=== PATIENT | female | born 1960 | race Caucasian/White ===

== ENCOUNTER 2018-04-12 10:30 | Inpatient (IN) ==
--- NOTE | 2018-04-12 11:14 | ED ---
HPI General Chief complaint: Vaginal Bleeding Stated complaint: Bleeding Time Seen by Provider: 04/12/18 11:13 Source: patient Mode of arrival: EMS Limitations: no limitations History of Present Illness HPI narrative: 57-year-old female with no significant medical history presents emergency department for evaluation of heavy vaginal bleeding for the last 8 days, weakness, lightheadedness, and frequent falls. Patient states she stands up in the room began to spin and she falls. She did strike her head 2 times in the last 8 days. She is so weak she has been unable to get herself off the ground and her male partner has had to lift her up. She reports no pain. She states she is leaking through every pad and tampon she puts in within an hour. 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 She states up until about 6 months ago her menstrual cycle was regular. She began having more irregular cycles with heavy bleeding since then. She has no other symptoms to report at this time. Related Data Home Medications Medication Instructions Recorded Confirmed No Known Home Medications 04/12/18 04/12/18 Allergies Allergy/AdvReac Type Severity Reaction Status Date / Time Penicillins Allergy Anaphylaxis Verified 04/12/18 11:15 Review of Systems Except as stated in HPI: all other systems reviewed are negative [facility] Medical History Medical History Medical history unknown (Acute) Surgical History Surgical History History of tubal ligation (Acute) Social History Social History Substance History: No History of Abuse Second Hand Smoke Exposure: No Smoking Status: Never smoker How Often Do You Have a Drink Containing Alcohol: 2 to 3 times a week Recent Travel in [facility] within the Last 8 Weeks: No Recent Out of Country Travel within the Last 8 Weeks: No Immunization History Tetanus Immunization: >5 Years Hx Influenza Vaccine This Season: No Exam Narrative Exam Narrative: GENERAL: Well-nourished female patient, sitting in bed, in no acute distress SKIN: Focused skin assessment warm/dry. Pallor HEAD: Atraumatic. Normocephalic. EYES: Pupils equal and round. No scleral icterus. Pale conjunctiva no injection or drainage. ENT: No nasal bleeding or discharge. Mucous membranes pink and moist. NECK: Trachea midline. No JVD. CARDIOVASCULAR: Tachycardic rate and rhythm. No murmur appreciated. RESPIRATORY: No accessory muscle use. Clear to auscultation. Breath sounds equal bilaterally. GASTROINTESTINAL: Abdomen soft, non-tender, nondistended. Hepatic and splenic margins not palpable. GENITOURINARY: Normal external genitalia without lesions or erythema. Vaginal vault with a large blood clot that was removed. There is active bleeding however this is a brown red color.. Cervical os is open 1 cm and with same drainage noted.. No cervical motion tenderness. Uterus nontender and nonenlarged. Bilateral adnexa nontender without masses. MUSCULOSKELETAL: No obvious deformities. No clubbing. No cyanosis. No edema. NEUROLOGICAL: Awake and alert. No obvious cranial nerve deficits. Motor grossly within normal limits. Normal speech. PSYCHIATRIC: Appropriate mood and affect; insight and judgment normal. Course Initial Documented Vital Signs Temperature 98.3 F 04/12/18 10:54 Pulse Rate 106 H 04/12/18 10:54 Respiratory Rate 20 04/12/18 10:54 Blood Pressure 117/56 L 04/12/18 10:54 Pulse Oximetry 99 04/12/18 10:54 Last Documented Vital Signs Temperature 98.6 F 04/12/18 13:17 Pulse Rate 110 H 04/12/18 13:17 Respiratory Rate 16 04/12/18 13:17 Blood Pressure 96/53 L 04/12/18 13:17 Pulse Oximetry 100 04/12/18 13:17 Medical Decision Making JOSE Attestation JOSE supervised visit: Yes [facility] Narrative Medical decision making narrative: This is a 57-year-old female with no significant medical history she comes to the emergency department today for evaluation of vaginal bleeding. Patient has saturated through her philomena-pad. She has a large blood clot 7 cm in diameter that is removed from her vaginal vault. Her cervical eyes is open and she has a brown red drainage from this. It filling the vaginal vault. She is pallor. She is tachycardic. She is too weak to do orthostatics at this time. CBC, BMP, coags, type and cross are sent. Lab work is reviewed. Patient's hemoglobin is 3.6 with hematocrit of 10.5. She has a leukocytosis of 12.1, this is likely hemoconcentrated. I have ordered 4 units of packed red blood cells, 2 to be given now into to be placed on hold. I discussed this with the patient and she is in agreement with this plan of care. A call has been placed to [facility] for admission. I have also ordered a pelvic ultrasound for further evaluation. Differential Diagnosis Differential Diagnosis: Perimenopause versus dysfunctional vaginal bleeding versus neoplasm versus symptomatic anemia Medical Records Medical records reviewed: Yes I reviewed the patient's medical records. POC Test Results POC Urine Results: Negative Lab Data Lab results reviewed: Yes I reviewed the patient's lab results. 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 Differential Comment Auto diff final Sodium 133 L (136-145) meq/L Potassium 4.1 (3.5-5.1) meq/L Chloride 101 (98-107) meq/L Carbon Dioxide 17.2 L (21.0-32.0) meq/L Anion Gap 15 (5-15) meq/L BUN 15 (7-18) mg/dL Creatinine 1.02 H (0.50-1.00) mg/dL Estimated GFR 56 L (>89) mL/min Random Glucose 112 H (74-106) mg/dL Calcium 6.9 L* (8.5-10.1) mg/dL Prot Corrected Calcium 8.5 (8.5-10.1) mg/dL Total Protein 4.2 L (6.4-8.2) g/dL Blood Type A Positive Blood Type Recheck Required Antibody Screen Negative MTS Gel Crossmatch 04/12/18 Range/Units 12:49 WBC (4.0-11.0) th/mm3 RBC (4.00-5.30) mil/mm3 Hgb (11.6-15.3) gm/dL Hct (35.0-46.0) % MCV (80.0-100.0) fL MCH (27.0-34.0) pg MCHC (32.0-36.0) % RDW (11.6-17.2) % Plt Count (150-450) th/mm3 MPV (7.0-11.0) fL Prelim Diff (Auto) Neut % (Auto) (16.0-70.0) % Lymph % (Auto) (9.0-44.0) % [place] % (Auto) (0.0-8.0) % Eos % (Auto) (0.0-4.0) % Baso % (Auto) (0.0-2.0) % Neut # (Auto) (1.8-7.7) th/mm3 Lymph # (Auto) (1.0-4.8) th/mm3 [place] # (Auto) (0.0-0.9) th/mm3 Eos # (Auto) (0.0-0.4) th/mm3 Baso # (Auto) (0.0-0.2) th/mm3 WBC Differential Differential Comment Sodium (136-145) meq/L Potassium (3.5-5.1) meq/L Chloride (98-107) meq/L Carbon Dioxide (21.0-32.0) meq/L Anion Gap (5-15) meq/L BUN (7-18) mg/dL Creatinine (0.50-1.00) mg/dL Estimated GFR (>89) mL/min Random Glucose (74-106) mg/dL Calcium (8.5-10.1) mg/dL Prot Corrected Calcium (8.5-10.1) mg/dL Total Protein (6.4-8.2) g/dL Blood Type Blood Type Recheck Antibody Screen MTS Gel Crossmatch See Detail Imaging Data Radiologist's impression: Head CT 04/12/18 11:43 CONCLUSION: 1. No acute intracranial abnormalities seen. 2. Minimal sinus disease. . Discharge Plan Discharge Disposition Patient Disposition: 30 Still Patient Discharge Condition Condition: Stable Discharge Details Diagnosis: Vaginal bleeding, Symptomatic anemia Physicians Team ED Provider: Asad Kendall ED Midlevel Provider: Alicia Umanzor Primary Care Provider: Primary Care Lucy Morales Rxs /Orders / Referrals /Forms Prescriptions: No Action No Known Home Medications RF: 0 Status ED Status: Admitted Patient
[2018-04-12 12:08] LABS: Baso % (Auto) 0.2 % (0.0-2.0); Lymph # (Auto) 0.7 th/mm3 (1.0-4.8); Lymph % (Auto) 5.5 % (9.0-44.0); Mean Corpuscular Hemoglobin 34.2 pg (27.0-34.0); Mean Corpuscular Volume 100.6 fL (80.0-100.0); Mono # (Auto) 1.3 th/mm3 (0.0-0.9); Mono % (Auto) 11.1 % (0.0-8.0); Neut % (Auto) 83.2 % (16.0-70.0); Platelet Count 196 th/mm3 (150-450); Red Blood Count 1.04 mil/mm3 (4.00-5.30); Red Cell Distribution Width 16.6 % (11.6-17.2); White Blood Count 12.1 th/mm3 (4.0-11.0)
[2018-04-12 12:12] LABS: Hemoglobin 3.6 gm/dL (11.6-15.3)
[2018-04-12 12:13] LABS: Hematocrit 10.5 % (35.0-46.0)
[2018-04-12 12:31] LABS: Calcium 6.9 mg/dL (8.5-10.1); Carbon Dioxide 17.2 meq/L (21.0-32.0); Potassium 4.1 meq/L (3.5-5.1)
--- NOTE | 2018-04-12 12:39 | CT ---
EXAM DATE: 04/12/2018 12:13 PM EDT AGE/SEX: 57 years / Female INDICATIONS: Syncopal episode CLINICAL DATA: This is the patient's initial encounter. Patient reports that signs and symptoms have been present for 1 day and indicates a pain score of 4/10. MEDICAL/SURGICAL HISTORY: None. Tubal ligation. RADIATION DOSE: 56.35 CTDI (mGy) COMPARISON: No prior exams available for comparison. TECHNIQUE: CT of the head without contrast. Using automated exposure control and adjustment of the mA and/or kV according to patient size, radiation dose was kept as low as reasonably achievable to ob tain optimal diagnostic quality images. DICOM format image data is available electronically for revi ew and comparison. FINDINGS: Cerebrum: The ventricles are normal for age. No evidence of midline shift, mass lesion, hemorrhage or acute infarction. No extraaxial fluid collections are seen. Posterior Fossa: The cerebellum and brainstem are intact. The 4th ventricle is midline. The cerebe llopontine angle is unremarkable. Extracranial: The visualized portion of the orbits is intact. There is minimal left ethmoid, sphenoi d, and left maxillary sinus disease. Skull: The calvaria is intact. No evidence of skull fracture. CONCLUSION: 1. No acute intracranial abnormalities seen. 2. Minimal sinus disease. . Electronically signed by: Artemio Alicea MD 04/12/2018 12:38 PM EDT
[2018-04-12] MEDS ORDERED: Sodium Chlor 0.9% Inj 250 ML IV.SIG SCH ×2 (13:00)
[2018-04-12 13:02] LABS: Total Protein 4.2 g/dL (6.4-8.2)
[2018-04-12 13:18] VITALS: O2SAT 100
--- NOTE | 2018-04-12 14:44 | P.HPIM ---
History of Present Illness Service: [facility] Primary Care Physician: No Primary Care Physician Chief Complaint: Severe weakness, lightheadedness, persistent vaginal bleeding History of Present Illness: 57-year-old female with no significant medical history presented to the emergency room for persistent vaginal bleeding, severe weakness, lightheadedness , falls. Patient reports she does not believe she ever went through menopause. She reports that she normally has a menstrual cycle every month lasting 5-6 days. However for the past 8 months she has been having irregular and heavy vaginal bleeding. She is a and denies any prior human resources services specialist issues. She has not seen any doctors for the past 14 years. She has been getting weaker and weaker to the point that she is unable to get off the floor by herself after falling. She did hit her head a couple of times after a few falls. Workup in the emergency room revealed hemoglobin of 3.6. Her head CT is negative. She is profoundly weak, tachycardic. She is currently receiving a blood transfusion. - Diagnosis (1) Acute blood loss anemia (2) Dysfunctional uterine bleeding Review of Systems All other systems reviewed negative except as stated in HPI Constitutional: Reports fatigue, Reports weakness, Denies night sweats, Denies weight loss Cardiovascular: Reports fainting, Reports fast heart rate, Denies chest pain Respiratory: Reports shortness of breath with activity Genitourinary: Reports abnormal periods, Reports abnormal vaginal bleeding, Denies pelvic pain PMFSH - History History Provided By: Patient - Medical History Medical History: Medical History (Last Updated 04/12/18 @ 15:15 by Arlet Campbell MD) No significant medical problems - Surgical History Surgical History: Surgical History (Last Reviewed 04/12/18 @ 15:14 by Arlet Campbell MD) History of tubal ligation - Family History Family History: Family History (Last Updated 04/12/18 @ 15:15 by Arlet Campbell MD) Mother Dysfunctional uterine bleeding Sister Dysfunctional uterine bleeding - Tobacco History Second Hand Smoke Exposure: No Tobacco Use In Past 30 Days: No Smoking Status: Never smoker - Alcohol History How Often Do You Have a Drink Containing Alcohol: 2 to 3 times a week - Substance Use History Substance History: No History of Abuse - Travel History Recent Travel in the [place] Within the Last 8 Weeks: No Recent Travel Out of the Country Within the Last 8 Weeks: No - Immunization History Tetanus Immunization: >5 Years Hx Influenza Vaccine This Season: No Medications and Allergies Active Medications: Active Medications Sodium Chloride (Ns Inj) 250 mls @ 15 mls/hr IV.SIG ONCE CRYSTAL Stop: 04/13/18 05:39 Last Admin: 04/12/18 13:46 Dose: 15 mls/hr Sodium Chloride (Ns Inj) 250 mls @ 15 mls/hr IV.SIG ONCE CRYSTAL Stop: 04/13/18 05:39 Allergies Allergy/AdvReac Type Severity Reaction Status Date / Time Penicillins Allergy Anaphylaxis Verified 04/12/18 11:15 Home Medications Medication Instructions Recorded Confirmed Type No Known Home Medications 04/12/18 04/12/18 History Exam Vital signs: Vital Signs 04/12/18 10:54 04/12/18 10:58 04/12/18 11:32 Temperature 98.3 F 98.3 F Pulse Rate 106 H 106 H Respiratory Rate 20 18 Blood Pressure 117/56 L 117/56 L Pulse Oximetry 99 100 97 04/12/18 13:17 04/12/18 13:33 Temperature 98.6 F Pulse Rate 110 H 109 H Respiratory Rate 16 18 Blood Pressure 96/53 L 103/55 L Pulse Oximetry 100 100 Intake & Output 04/11/18 04/12/18 04/12/18 18:59 06:59 18:59 Intake Total 0 / 0 Balance 0 / 0 Weight 52.163 kg Intake: Intake (Blood Product) Amt 0 / 0 Rbc As-3 Leukoreduced Unit 0 / 0 [id number] Narrative: GENERAL: This is a well-nourished, well-developed patient, in no apparent distress. CARDIOVASCULAR: Tachycardic rate around 105 and regular rhythm without murmurs, gallops, or rubs. RESPIRATORY: Good respiratory efforts. Breath sounds equal and clear to auscultation bilaterally. GASTROINTESTINAL: Abdomen soft, non-tender, non-distended. Normal active bowel sounds MUSCULOSKELETAL: Extremities without cyanosis, or edema. NEURO: Alert & Oriented x4 to person, place, time, situation. Moves all ext x4 PSYCH: Appropriate mood and affect. Results - Labs CBC & Chem 7: 04/12/18 11:34 04/12/18 11:34 Labs: Short CBC 04/12/18 Range/Units 11:34 WBC 12.1 H (4.0-11.0) th/mm3 Hgb 3.6 L* (11.6-15.3) gm/dL Hct 10.5 L* (35.0-46.0) % Plt Count 196 (150-450) th/mm3 BMP 04/12/18 11:34 Sodium 133 L Potassium 4.1 Chloride 101 Carbon Dioxide 17.2 L BUN 15 Creatinine 1.02 H Calcium 6.9 L* - Imaging Impressions Head CT 04/12/18 11:43 CONCLUSION: 1. No acute intracranial abnormalities seen. 2. Minimal sinus disease. . Caprini VTE Risk Assessment Caprini VTE Risk Assessment: No/Low Risk (score <= 1) VTE Pharmacological Exception Reason: Hemorrhage Caprini Risk Assessment Model: Point Value = 1 Point Value = 2 Point Value = 3 Point Value = 5 Age 41-60 Minor surgery BMI > 25 kg/m2 Swollen legs Varicose veins or History of unexplained or recurrent spontaneous Oral contraceptives or hormone replacement Sepsis (< 1 month) Serious lung disease, including pneumonia (< 1 month) Abnormal pulmonary function Acute myocardial infarction Congestive heart failure (< 1 month) History of inflammatory bowel disease Medical patient at bed rest Age 61-74 Arthroscopic surgery Major open surgery (> 45 min) Laparoscopic surgery (> 45 min) Malignancy Confined to bed (> 72 hours) Immobilizing plaster cast Central venous access Age >= 75 History of VTE Family history of VTE Factor V Leiden Prothrombin [id number] Lupus anticoagulant Anticardiolipin antibodies Elevated serum homocysteine Heparin-induced thrombocytopenia Other congenital or acquired thrombophilia Stroke (< 1 month) Elective arthroplasty Hip, pelvis, or leg fracture Acute spinal cord injury (< 1 month) Prophylaxis Regimen: Total Risk Factor Score Risk Level Prophylaxis Regimen 0-1 Low Early ambulation 2 Moderate Order ONE of the following: *Sequential Compression Device (SCD) *Heparin 5000 units SQ BID 3-4 Higher Order ONE of the following medications: *Heparin 5000 units SQ TID *Enoxaparin/Lovenox 40 mg SQ daily (WT < 150 kg, CrCl > 30 mL/min) *Enoxaparin/Lovenox 30 mg SQ daily (WT < 150 kg, CrCl > 10-29 mL/min) *Enoxaparin/Lovenox 30 mg SQ BID (WT < 150 kg, CrCl > 30 mL/min) AND/OR *Sequential Compression Device (SCD) 5 or more Highest Order ONE of the following medications: *Heparin 5000 units SQ TID (Preferred with Epidurals) *Enoxaparin/Lovenox 40 mg SQ daily (WT < 150 kg, CrCl > 30 mL/min) *Enoxaparin/Lovenox 30 mg SQ daily (WT < 150 kg, CrCl > 10-29 mL/min) *Enoxaparin/Lovenox 30 mg SQ BID (WT < 150 kg, CrCl > 30 mL/min) AND *Sequential Compression Device (SCD) Assessment and Plan - Assessment (1) Acute blood loss anemia Code(s): D62 - Acute posthemorrhagic anemia Status: Acute (2) Dysfunctional uterine bleeding Code(s): N93.8 - Other specified abnormal uterine and vaginal bleeding Status : Acute - Plan 57-year-old female who presented with severe, life-threatening symptomatic anemia with a hemoglobin of 3.6 due to dysfunctional uterine bleeding. Acute blood loss anemia due to uterine bleeding: Symptomatic. - Patient is still actively bleeding on vaginal exam per discussion with emergency room staff. Vaginal vault with a large blood clot that was removed. - Continue to support with blood transfusion. She will get an additional 2 units of PRBC. Repeat H&H posttransfusion. - Serial H&H Dysfunctional uterine bleeding: She reports that she continued to have regular menstrual cycles up until 8 months ago when she started to have irregular and heavy bleeding. She reports that her sister and mother required hysterectomy for the same condition - Will obtain a pelvic ultrasound - Consult Export Traffic Department Manager for assistance as she is still bleeding. - Support with blood transfusions as above. Discussed Condition With: Daily Alicia. KETTY FERNANDEZ.
[2018-04-12] MEDS ORDERED: Temazepam 15 MG Capsule PO PRN (14:59)
[2018-04-12] MEDS ORDERED: Bisacodyl 10 MG Supp RECTAL PRN (14:59)
--- NOTE | 2018-04-12 15:00 | US ---
EXAM DATE: 04/12/2018 2:57 PM EDT AGE/SEX: 57 years / Female INDICATIONS: Vaginal bleeding. CLINICAL DATA: This is the patient's initial encounter. Patient reports that signs and symptoms have been present for 1 week and indicates a pain score of 0/10. MEDICAL/SURGICAL HISTORY: Anemia. Tubal ligation. COMPARISON: No prior exams available for comparison. MEASUREMENTS: Uterus:__8.9 x 5.4 x 4.2 cm Endometrial Stripe:__2 mm Right Ovary:__ 2.3 x 2.1 x 1.2 cm Left Ovary:__ 2.6 x 1.7 x 1.0 cm FINDINGS: Uterus: The uterus is heterogeneous in echotexture. There are some microcalcifications in the myomet rium. The endometrial cavity is empty. Endometrial Stripe: The endometrial stripe displays homogeneous echotexture. Right Ovary: Ovary contains no mass or significant cystic lesion. Left Ovary: There is a small cyst associated with the left ovary measuring 1.2 cm. Fluid: No free fluid. Other: None. CONCLUSION: 1. Heterogeneous uterus with some microcalcifications in the myometrium. 2. Small left ovarian cyst measuring 1.2 cm. Electronically signed by: Vini Barrera MD 04/12/2018 2:59 PM EDT
[2018-04-12] MEDS: Acetaminophen 325 MG Tablet PO PRN ×2 (16:35→21:32)
--- NOTE | 2018-04-12 16:59 | P.CONOB ---
History of Present Illness Primary Care Physician: No Primary Care Physician Chief Complaint: Severe weakness, lightheadedness, persistent vaginal bleeding History of Present Illness: 57-year-old female with no significant medical history presented to the emergency room for persistent vaginal bleeding, severe weakness, lightheadedness , falls. Patient reports she does not believe she ever went through menopause. She reports that she normally has a menstrual cycle every month lasting 5-6 days. In the last 6 months she said she started having her period every 2 months that have been heavier. On Monday, she started her period and it was much heavier than normal. She had clots and unable to make it to the bathroom before having blood soak through clothing. She has been having hot flashes for 8 months. She hasn't noticed any other abnormal bleeding from gums or bruising. Her last PAP was 15 years ago. All her PAP smears have been normal. She has never had an STI. No urinary or gastrointestinal symptoms. No pain or cramping. She is sexually active with one partner. No contraception use. Had a tubal ligation. Previously on control pills. She has been 3 times all ending in term vaginal births. - Inpatient Certification I certify that the inpatient services were ordered in accordance with Medicare regulations governing the order. This includes certification that hospital inpatient services are reasonable and necessary and in the case of services not specified as inpatient-only under 42 CFR 419.22(n), that they are appropriately provided as inpatient services in accordance to with the 2-midnight benchmark under 43 CFR 412.3(e) Estimated Total Length of Stay (Days): 3 Plans for Post Hospital Care: Home Review of Systems Constitutional: Reports fatigue, Denies chills Cardiovascular: Reports chest pain Respiratory: Denies cough, Denies wheezing Gastrointestinal: Denies abdominal pain, Denies cramping Genitourinary: Reports abnormal periods, Reports abnormal vaginal bleeding, Denies painful urination, Denies urinary incontinence, Denies urinary urgency, Denies vaginal dryness Musculoskeletal: Reports muscle cramps Comments: leg cramps Neurologic: Reports dizziness, Reports fainting Endocrine: Reports heat intolerance Hematologic/Lymphatic: Denies easy bleeding, Denies easy bruising PMFSH - History History Provided By: Patient - Medical History Medical History: Medical History (Last Updated 04/12/18 @ 15:15 by Arlet Campbell MD) No significant medical problems - Surgical History Surgical History: Surgical History (Last Reviewed 04/12/18 @ 15:14 by Arlet Campbell MD) History of tubal ligation - Family History Family History: Family History (Last Updated 04/12/18 @ 15:15 by Arlet Campbell MD) Mother Dysfunctional uterine bleeding Sister Dysfunctional uterine bleeding - Tobacco History Second Hand Smoke Exposure: No Tobacco Use In Past 30 Days: No Smoking Status: Never smoker - Alcohol History How Often Do You Have a Drink Containing Alcohol: 2 to 3 times a week - Substance Use History Substance History: No History of Abuse - Travel History Recent Travel in the [place] Within the Last 8 Weeks: No Recent Travel Out of the Country Within the Last 8 Weeks: No - Immunization History Tetanus Immunization: >5 Years Hx Influenza Vaccine This Season: No Medications and Allergies Active Medications: Active Medications Acetaminophen (Tylenol) 650 mg PO Q4H PRN PRN Reason: Temp > 100.4 Last Admin: 04/12/18 16:35 Dose: 650 mg Al Hydroxide/Mg Hydroxide (Milk Of Magnesia Liq) 30 ml PO Q12H PRN PRN Reason: Mild Constipation Bisacodyl (Dulcolax Supp) 10 mg RECTAL DAILY PRN PRN Reason: SEVERE CONSITIPATION Sodium Chloride (Ns Inj) 250 mls @ 15 mls/hr IV.SIG ONCE CRYSTAL Stop: 04/13/18 05:39 Last Admin: 04/12/18 13:46 Dose: 15 mls/hr Sodium Chloride (Ns Inj) 250 mls @ 15 mls/hr IV.SIG ONCE CRYSTAL Stop: 04/13/18 05:39 Lactulose (Lactulose Liq) 30 ml PO DAILY PRN PRN Reason: SEVERE CONSITIPATION Sennosides (Senokot) 17.2 mg PO Q12H PRN PRN Reason: Moderate Constipation Temazepam (Restoril) 15 mg PO HS PRN PRN Reason: INSOMNIA Allergies Allergy/AdvReac Type Severity Reaction Status Date / Time Penicillins Allergy Anaphylaxis Verified 04/12/18 11:15 Home Medications Medication Instructions Recorded Confirmed Type No Known Home Medications 04/12/18 04/12/18 History Exam Vital signs: Vital Signs 04/12/18 10:54 04/12/18 10:58 04/12/18 11:32 Temperature 98.3 F 98.3 F Pulse Rate 106 H 106 H Respiratory Rate 20 18 Blood Pressure 117/56 L 117/56 L Pulse Oximetry 99 100 97 04/12/18 13:17 04/12/18 13:33 04/12/18 14:45 Temperature 98.6 F Pulse Rate 110 H 109 H 108 H Respiratory Rate 16 18 18 Blood Pressure 96/53 L 103/55 L 95/50 L Pulse Oximetry 100 100 100 04/12/18 14:47 04/12/18 15:00 Temperature Pulse Rate 108 H 102 H Respiratory Rate 18 18 Blood Pressure 95/50 L 94/55 L Pulse Oximetry 100 100 Intake & Output 04/11/18 04/12/18 04/12/18 18:59 06:59 18:59 Intake Total 650 / 650 Balance 650 / 650 Weight 52.163 kg Intake: Other 250 / 250 Rbc As-3 Leukoreduced Unit 250 / 250 [id number] Intake (Blood Product) Amt 400 / 400 Rbc As-3 Leukoreduced Unit 400 / 400 [id number] - Constitutional no acute distress - Routine HEENT Exam Head: Present: normocephalic, atraumatic - Routine Cardiovascular Exam Present: tachycardia. Absent: murmur - Routine Abdominal Exam Present: soft. Absent: tenderness, distended - Routine Extremities Exam Absent: tenderness, joint swelling - Additional findings Additional findings: Pelvic exam: no vaginal or cervical masses, no fibroids, uterus palpates usual size Results - Labs CBC & Chem 7: 04/12/18 11:34 04/12/18 11:34 Labs: Laboratory Results - last 24 hr 04/12/18 04/12/18 04/12/18 11:34 11:34 11:34 WBC 12.1 H RBC 1.04 L Hgb 3.6 L* Hct 10.5 L* MCV 100.6 H MCH 34.2 H MCHC 34.0 RDW 16.6 Plt Count 196 MPV 10.0 Prelim Diff (Auto) Fermenting Cellar Dropper Neut % (Auto) 83.2 H Lymph % (Auto) 5.5 L [place] % (Auto) 11.1 H Eos % (Auto) 0.0 Baso % (Auto) 0.2 Neut # (Auto) 10.0 H Lymph # (Auto) 0.7 L [place] # (Auto) 1.3 H Eos # (Auto) 0.0 Baso # (Auto) 0.0 WBC Differential . Differential Comment Auto diff final Sodium 133 L Potassium 4.1 Chloride 101 Carbon Dioxide 17.2 L Anion Gap 15 BUN 15 Creatinine 1.02 H Estimated GFR 56 L Random Glucose 112 H Calcium 6.9 L* Prot Corrected Calcium 8.5 Total Protein 4.2 L Blood Type A Positive Blood Type Recheck Required Antibody Screen Negative MTS Gel Crossmatch 04/12/18 12:49 WBC RBC Hgb Hct MCV MCH MCHC RDW Plt Count MPV Prelim Diff (Auto) Neut % (Auto) Lymph % (Auto) [place] % (Auto) Eos % (Auto) Baso % (Auto) Neut # (Auto) Lymph # (Auto) [place] # (Auto) Eos # (Auto) Baso # (Auto) WBC Differential Differential Comment Sodium Potassium Chloride Carbon Dioxide Anion Gap BUN Creatinine Estimated GFR Random Glucose Calcium Prot Corrected Calcium Total Protein Blood Type Blood Type Recheck Antibody Screen MTS Gel Crossmatch See Detail - Imaging Impressions Head CT 04/12/18 11:43 CONCLUSION: 1. No acute intracranial abnormalities seen. 2. Minimal sinus disease. . Pelvis Ultrasound 04/12/18 12:56 CONCLUSION: 1. Heterogeneous uterus with some microcalcifications in the myometrium. 2. Small left ovarian cyst measuring 1.2 cm. Caprini VTE Risk Assessment Caprini VTE Risk Assessment: No/Low Risk (score <= 1) VTE Pharmacological Exception Reason: Hemorrhage Caprini Risk Assessment Model: Point Value = 1 Point Value = 2 Point Value = 3 Point Value = 5 Age 41-60 Minor surgery BMI > 25 kg/m2 Swollen legs Varicose veins or History of unexplained or recurrent spontaneous Oral contraceptives or hormone replacement Sepsis (< 1 month) Serious lung disease, including pneumonia (< 1 month) Abnormal pulmonary function Acute myocardial infarction Congestive heart failure (< 1 month) History of inflammatory bowel disease Medical patient at bed rest Age 61-74 Arthroscopic surgery Major open surgery (> 45 min) Laparoscopic surgery (> 45 min) Malignancy Confined to bed (> 72 hours) Immobilizing plaster cast Central venous access Age >= 75 History of VTE Family history of VTE Factor V Leiden Prothrombin [id number] Lupus anticoagulant Anticardiolipin antibodies Elevated serum homocysteine Heparin-induced thrombocytopenia Other congenital or acquired thrombophilia Stroke (< 1 month) Elective arthroplasty Hip, pelvis, or leg fracture Acute spinal cord injury (< 1 month) Prophylaxis Regimen: Total Risk Factor Score Risk Level Prophylaxis Regimen 0-1 Low Early ambulation 2 Moderate Order ONE of the following: *Sequential Compression Device (SCD) *Heparin 5000 units SQ BID 3-4 Higher Order ONE of the following medications: *Heparin 5000 units SQ TID *Enoxaparin/Lovenox 40 mg SQ daily (WT < 150 kg, CrCl > 30 mL/min) *Enoxaparin/Lovenox 30 mg SQ daily (WT < 150 kg, CrCl > 10-29 mL/min) *Enoxaparin/Lovenox 30 mg SQ BID (WT < 150 kg, CrCl > 30 mL/min) AND/OR *Sequential Compression Device (SCD) 5 or more Highest Order ONE of the following medications: *Heparin 5000 units SQ TID (Preferred with Epidurals) *Enoxaparin/Lovenox 40 mg SQ daily (WT < 150 kg, CrCl > 30 mL/min) *Enoxaparin/Lovenox 30 mg SQ daily (WT < 150 kg, CrCl > 10-29 mL/min) *Enoxaparin/Lovenox 30 mg SQ BID (WT < 150 kg, CrCl > 30 mL/min) AND *Sequential Compression Device (SCD) Assessment and Plan - Diagnosis (1) Acute blood loss anemia Code(s): D62 - Acute posthemorrhagic anemia Status: Acute (2) Dysfunctional uterine bleeding Code(s): N93.8 - Other specified abnormal uterine and vaginal bleeding Status : Acute Plan: 57 year female perimenopausal presents with abnormal uterine bleeding to severe anemia. 1. severe anemia -hemoglobin 3.6 continue to transfuse to above 7 2. Abnormal uterine bleeding -exam benign and imaging no cause for bleeding -Provera 10mg TID every day until bleeding stops and then once a day until can see STEAMFITTER APPRENTICE physician outpatient -Clear liquid diet until midnight to ensure no more hemorrhaging in case of D and C; if start bleeding acutely please notified SOFTBALL PLAYER hospitalist immediately for possible procedure Thank you for letting us be involved in patient's care. We will continue to follow at this time.
[2018-04-12] MEDS: Sod Chloride 0.9% Inj 1,000 ML IV.SIG SCH (17:11)
[2018-04-13] MEDS: Acetaminophen 325 MG Tablet PO PRN ×2 (02:23→09:54)
[2018-04-13 02:48] LABS: Hematocrit 29.5 % (35.0-46.0); Hemoglobin 10.4 gm/dL (11.6-15.3)
[2018-04-13 03:23] VITALS: TEMP 98.4
[2018-04-13] MEDS: Sod Chloride 0.9% Inj 1,000 ML IV.SIG SCH (05:32)
[2018-04-13 05:38] VITALS: BP 106/58; PULSE 78; RESP 18
[2018-04-13 05:57] LABS: Baso % (Auto) 0.3 % (0.0-2.0); Eos % (Auto) 0.1 % (0.0-4.0); Hemoglobin 10.1 gm/dL (11.6-15.3); Lymph # (Auto) 1.1 th/mm3 (1.0-4.8); Lymph % (Auto) 13.1 % (9.0-44.0); Mean Corpuscular Hemoglobin 30.8 pg (27.0-34.0); Mean Corpuscular Volume 85.2 fL (80.0-100.0); Mean Platelet Volume 7.9 fL (7.0-11.0); Mono # (Auto) 1.1 th/mm3 (0.0-0.9); Mono % (Auto) 12.5 % (0.0-8.0); Neut # (Auto) 6.2 th/mm3 (1.8-7.7); Platelet Count 155 th/mm3 (150-450); Red Blood Count 3.29 mil/mm3 (4.00-5.30); Red Cell Distribution Width 15.2 % (11.6-17.2); White Blood Count 8.4 th/mm3 (4.0-11.0)
[2018-04-13 06:07] LABS: Activated Partial Thrombo Time 25.2 sec (24.3-30.1); INR 1.4 Ratio; Prothrombin Time 13.9 sec (9.8-11.6)
[2018-04-13 06:16] LABS: Anion Gap 7 meq/L (5-15); Blood Urea Nitrogen 14 mg/dL (7-18); Calcium 6.9 mg/dL (8.5-10.1); Chloride 107 meq/L (98-107); Glomerular Filtration Rate Greater Than 89 mL/min (>89); Glucose,Random 101 mg/dL (74-106); Potassium 3.5 meq/L (3.5-5.1); Sodium 140 meq/L (136-145)
[2018-04-13 06:23] LABS: Mean Corpuscular HGB Conc 36.1 % (32.0-36.0)
[2018-04-13 06:29] LABS: Total Protein 4.6 g/dL (6.4-8.2)
[2018-04-13 07:33] LABS: Lymphocytes 9 % (9-44); Monocytes 13 % (0-8); Myelocytes 1 % (0-0); Promyelocyte 2 % (0-0)
[2018-04-13 07:34] LABS: Platelet Estimate Normal (Normal); Platelet Morphology Normal (Normal)
[2018-04-13 07:36] LABS: Dimorphic RBC Present
--- NOTE | 2018-04-13 10:30 | P.CONOB ---
History of Present Illness Primary Care Physician: No Primary Care Physician Chief Complaint: Severe weakness, lightheadedness, persistent vaginal bleeding History of Present Illness: 57-year-old female with no significant medical history presented to the emergency room for persistent vaginal bleeding, severe weakness, lightheadedness , falls. This morning patient reports that she has not had any bleeding since yesterday. Denies any abdominal pain, SOB, or CP. No headache or dizziness but has not been out of bed much. Has been eating and drinking well. Patient reports she does not believe she ever went through menopause. She reports that she normally has a menstrual cycle every month lasting 5-6 days. In the last 6 months she said she started having her period every 2 months that have been heavier. On Monday, she started her period and it was much heavier than normal. She had clots and unable to make it to the bathroom before having blood soak through clothing. She has been having hot flashes for 8 months. She hasn't noticed any other abnormal bleeding from gums or bruising. Her last PAP was 15 years ago. All her PAP smears have been normal. She has never had an STI. No urinary or gastrointestinal symptoms. No pain or cramping. She is sexually active with one partner. No contraception use. Had a tubal ligation. Previously on control pills. She has been 3 times all ending in term vaginal births. - Inpatient Certification I certify that the inpatient services were ordered in accordance with Medicare regulations governing the order. This includes certification that hospital inpatient services are reasonable and necessary and in the case of services not specified as inpatient-only under 42 CFR 419.22(n), that they are appropriately provided as inpatient services in accordance to with the 2-midnight benchmark under 43 CFR 412.3(e) Estimated Total Length of Stay (Days): 3 Plans for Post Hospital Care: Home Review of Systems Cardiovascular: Denies chest pain Respiratory: Denies shortness of breath Gastrointestinal: Denies abdominal pain, Denies vomiting Genitourinary: Denies painful urination, Denies urinary urgency Neurologic: Denies dizziness, Denies headache(s) PMFSH - History History Provided By: Patient - Medical History Medical History: Medical History (Last Updated 04/12/18 @ 15:15 by Arlet Campbell MD) No significant medical problems - Surgical History Surgical History: Surgical History (Last Reviewed 04/12/18 @ 15:14 by Arlet Campbell MD) History of tubal ligation - Family History Family History: Family History (Last Updated 04/12/18 @ 15:15 by Arlet Campbell MD) Mother Dysfunctional uterine bleeding Sister Dysfunctional uterine bleeding - Tobacco History Second Hand Smoke Exposure: No Tobacco Use In Past 30 Days: No Smoking Status: Never smoker - Alcohol History How Often Do You Have a Drink Containing Alcohol: Never - Substance Use History Substance History: No History of Abuse - Travel History Recent Travel in the [place] Within the Last 8 Weeks: No Recent Travel Out of the Country Within the Last 8 Weeks: No - Immunization History Tetanus Immunization: >5 Years Hx Influenza Vaccine This Season: No Medications and Allergies Active Medications: Active Medications Acetaminophen (Tylenol) 650 mg PO Q4H PRN PRN Reason: Temp > 100.4 Last Admin: 04/13/18 09:54 Dose: 650 mg Al Hydroxide/Mg Hydroxide (Milk Of Magnesia Liq) 30 ml PO Q12H PRN PRN Reason: Mild Constipation Bisacodyl (Dulcolax Supp) 10 mg RECTAL DAILY PRN PRN Reason: SEVERE CONSITIPATION Diphenhydramine HCl (Benadryl Inj) 25 mg IV.PUSH [employer] [facility] Stop: 04/13/18 16:44 Last Admin: 04/12/18 23:03 Dose: 25 mg Sodium Chloride (Ns Inj) 1,000 mls @ 75 mls/hr IV.SIG .[id number] [facility] Last Admin: 04/13/18 05:32 Dose: 75 mls/hr Lactulose (Lactulose Liq) 30 ml PO DAILY PRN PRN Reason: SEVERE CONSITIPATION Medroxyprogesterone Acetate (Provera) 10 mg PO TID [facility] Last Admin: 04/13/18 09:54 Dose: 10 mg Sennosides (Senokot) 17.2 mg PO Q12H PRN PRN Reason: Moderate Constipation Temazepam (Restoril) 15 mg PO HS PRN PRN Reason: INSOMNIA Allergies Allergy/AdvReac Type Severity Reaction Status Date / Time Penicillins Allergy Anaphylaxis Verified 04/12/18 11:15 Home Medications Medication Instructions Recorded Confirmed Type No Known Home Medications 04/12/18 04/12/18 History Exam Vital signs: Vital Signs 04/12/18 10:54 04/12/18 10:58 04/12/18 11:32 Temperature 98.3 F 98.3 F Pulse Rate 106 H 106 H Respiratory Rate 20 18 Blood Pressure 117/56 L 117/56 L Pulse Oximetry 99 100 97 04/12/18 13:17 04/12/18 13:33 04/12/18 14:45 Temperature 98.6 F Pulse Rate 110 H 109 H 108 H Respiratory Rate 16 18 18 Blood Pressure 96/53 L 103/55 L 95/50 L Pulse Oximetry 100 100 100 04/12/18 14:47 04/12/18 15:00 04/12/18 16:15 Temperature 101.5 F H Pulse Rate 108 H 102 H 105 H Respiratory Rate 18 18 21 Blood Pressure 95/50 L 94/55 L 94/52 L Pulse Oximetry 100 100 100 04/12/18 16:45 04/12/18 16:53 04/12/18 17:00 Temperature 99.7 F H 99.3 F 100.7 F H Pulse Rate 106 H 101 H Respiratory Rate 22 16 Blood Pressure 94/52 L 89/51 L Pulse Oximetry 100 100 04/12/18 17:11 04/12/18 17:54 04/12/18 18:00 Temperature 99.8 F H Pulse Rate 97 H 97 H 99 H Respiratory Rate 12 22 Blood Pressure 97/44 L Pulse Oximetry 100 100 100 04/12/18 18:01 04/12/18 19:00 04/12/18 19:03 Temperature Pulse Rate 100 H 92 H 92 H Respiratory Rate 24 Blood Pressure 97/44 L 79/48 L 92/52 L Pulse Oximetry 100 100 100 04/12/18 19:40 04/12/18 20:00 04/12/18 22:58 Temperature 99 F 99.1 F 98.4 F Pulse Rate 91 H 93 H 83 Respiratory Rate 39 H 19 14 Blood Pressure 92/52 L 102/50 L 87/51 L Pulse Oximetry 100 100 100 04/12/18 23:15 04/13/18 00:00 04/13/18 03:22 Temperature 98.6 F 98.7 F 98.4 F Pulse Rate 81 81 79 Respiratory Rate 14 19 20 Blood Pressure 87/51 L 93/53 L 102/59 L Pulse Oximetry 100 100 100 04/13/18 04:00 04/13/18 08:00 Temperature Pulse Rate 78 Respiratory Rate 18 Blood Pressure 106/58 L Pulse Oximetry 100 100 Intake & Output 04/12/18 04/13/18 04/13/18 18:59 06:59 18:59 Intake Total 650 / 650 1100 / 1100 Balance 650 / 650 1100 / 1100 Weight 52.163 kg Intake: IV 1100 / 1100 NS Inj 1,000 ML @ 75 mls/hr IV. 1000 / 1000 SIG .[id number] CRYSTAL Rx#:[id number] NS Inj 250 ML @ 15 mls/hr IV. 100 / 100 SIG ONCE CRYSTAL Rx#:[id number] Other 250 / 250 Rbc As-3 Leukoreduced Unit 250 / 250 [id number] Intake (Blood Product) Amt 400 / 400 0 / 0 Rbc As-3 Leukoreduced Unit 400 / 400 [id number] Rbc As-3 Leukoreduced Unit 0 / 0 [id number] Rbc As-3 Leukoreduced Unit 0 / 0 [id number] Rbc As-3 Leukoreduced Unit 0 / 0 0 / 0 [id number] - Constitutional no acute distress - Routine HEENT Exam Head: Present: normocephalic, atraumatic - Routine Cardiovascular Exam Present: RRR. Absent: murmur - Routine Abdominal Exam Present: soft. Absent: tenderness, distended Results - Labs CBC & Chem 7: 04/13/18 05:25 04/13/18 05:25 Labs: Laboratory Results - last 24 hr 04/12/18 04/12/18 04/12/18 11:34 11:34 11:34 WBC 12.1 H RBC 1.04 L Hgb 3.6 L* Hct 10.5 L* MCV 100.6 H MCH 34.2 H MCHC 34.0 RDW 16.6 Plt Count 196 MPV 10.0 Prelim Diff (Auto) Welding Estimator Neut % (Auto) 83.2 H Lymph % (Auto) 5.5 L [place] % (Auto) 11.1 H Eos % (Auto) 0.0 Baso % (Auto) 0.2 Neut # (Auto) 10.0 H Lymph # (Auto) 0.7 L [place] # (Auto) 1.3 H Eos # (Auto) 0.0 Baso # (Auto) 0.0 WBC Differential . Seg Neuts % (Manual) Lymphocytes % (Manual) Monocytes % (Manual) Basophils % (Manual) Myelocytes % (Man) Promyelocytes % (Man) Abs Neuts (Manual) Differential Comment Auto diff final Platelet Estimate Platelet Morphology Dimorphic RBCs PT INR APTT Sodium 133 L Potassium 4.1 Chloride 101 Carbon Dioxide 17.2 L Anion Gap 15 BUN 15 Creatinine 1.02 H Estimated GFR 56 L Random Glucose 112 H Calcium 6.9 L* Prot Corrected Calcium 8.5 Total Protein 4.2 L Blood Type A Positive Blood Type Recheck Required Antibody Screen Negative MTS Gel Crossmatch 04/12/18 04/13/18 04/13/18 12:49 02:38 05:25 WBC RBC Hgb 10.4 L D Hct 29.5 L MCV MCH MCHC RDW Plt Count MPV Prelim Diff (Auto) Neut % (Auto) Lymph % (Auto) [place] % (Auto) Eos % (Auto) Baso % (Auto) Neut # (Auto) Lymph # (Auto) [place] # (Auto) Eos # (Auto) Baso # (Auto) WBC Differential Seg Neuts % (Manual) Lymphocytes % (Manual) Monocytes % (Manual) Basophils % (Manual) Myelocytes % (Man) Promyelocytes % (Man) Abs Neuts (Manual) Differential Comment Platelet Estimate Platelet Morphology Dimorphic RBCs PT 13.9 H INR 1.4 APTT 25.2 Sodium Potassium Chloride Carbon Dioxide Anion Gap BUN Creatinine Estimated GFR Random Glucose Calcium Prot Corrected Calcium Total Protein Blood Type Blood Type Recheck Antibody Screen MTS Gel Crossmatch See Detail 04/13/18 04/13/18 05:25 05:25 WBC 8.4 RBC 3.29 L Hgb 10.1 L Hct 28.0 L MCV 85.2 D MCH 30.8 MCHC 36.1 H RDW 15.2 Plt Count 155 MPV 7.9 Prelim Diff (Auto) Slide review pending Neut % (Auto) 74.0 H Lymph % (Auto) 13.1 [place] % (Auto) 12.5 H Eos % (Auto) 0.1 Baso % (Auto) 0.3 Neut # (Auto) 6.2 Lymph # (Auto) 1.1 [place] # (Auto) 1.1 H Eos # (Auto) 0.0 Baso # (Auto) 0.0 WBC Differential Manual diff final Seg Neuts % (Manual) 74 H Lymphocytes % (Manual) 9 Monocytes % (Manual) 13 H Basophils % (Manual) 1 Myelocytes % (Man) 1 H Promyelocytes % (Man) 2 H Abs Neuts (Manual) 6.5 Differential Comment . Platelet Estimate Normal Platelet Morphology Normal Dimorphic RBCs Present H PT INR APTT Sodium 140 Potassium 3.5 Chloride 107 Carbon Dioxide 26.0 Anion Gap 7 BUN 14 Creatinine 0.60 Estimated GFR Greater than 89 Random Glucose 101 Calcium 6.9 L* Prot Corrected Calcium 8.2 L Total Protein 4.6 L Blood Type Blood Type Recheck Antibody Screen MTS Gel Crossmatch - Imaging Impressions Head CT 04/12/18 11:43 CONCLUSION: 1. No acute intracranial abnormalities seen. 2. Minimal sinus disease. . Pelvis Ultrasound 04/12/18 12:56 CONCLUSION: 1. Heterogeneous uterus with some microcalcifications in the myometrium. 2. Small left ovarian cyst measuring 1.2 cm. Caprini VTE Risk Assessment Caprini VTE Risk Assessment: No/Low Risk (score <= 1) VTE Pharmacological Exception Reason: Hemorrhage Caprini Risk Assessment Model: Point Value = 1 Point Value = 2 Point Value = 3 Point Value = 5 Age 41-60 Minor surgery BMI > 25 kg/m2 Swollen legs Varicose veins or History of unexplained or recurrent spontaneous Oral contraceptives or hormone replacement Sepsis (< 1 month) Serious lung disease, including pneumonia (< 1 month) Abnormal pulmonary function Acute myocardial infarction Congestive heart failure (< 1 month) History of inflammatory bowel disease Medical patient at bed rest Age 61-74 Arthroscopic surgery Major open surgery (> 45 min) Laparoscopic surgery (> 45 min) Malignancy Confined to bed (> 72 hours) Immobilizing plaster cast Central venous access Age >= 75 History of VTE Family history of VTE Factor V Leiden Prothrombin [id number] Lupus anticoagulant Anticardiolipin antibodies Elevated serum homocysteine Heparin-induced thrombocytopenia Other congenital or acquired thrombophilia Stroke (< 1 month) Elective arthroplasty Hip, pelvis, or leg fracture Acute spinal cord injury (< 1 month) Prophylaxis Regimen: Total Risk Factor Score Risk Level Prophylaxis Regimen 0-1 Low Early ambulation 2 Moderate Order ONE of the following: *Sequential Compression Device (SCD) *Heparin 5000 units SQ BID 3-4 Higher Order ONE of the following medications: *Heparin 5000 units SQ TID *Enoxaparin/Lovenox 40 mg SQ daily (WT < 150 kg, CrCl > 30 mL/min) *Enoxaparin/Lovenox 30 mg SQ daily (WT < 150 kg, CrCl > 10-29 mL/min) *Enoxaparin/Lovenox 30 mg SQ BID (WT < 150 kg, CrCl > 30 mL/min) AND/OR *Sequential Compression Device (SCD) 5 or more Highest Order ONE of the following medications: *Heparin 5000 units SQ TID (Preferred with Epidurals) *Enoxaparin/Lovenox 40 mg SQ daily (WT < 150 kg, CrCl > 30 mL/min) *Enoxaparin/Lovenox 30 mg SQ daily (WT < 150 kg, CrCl > 10-29 mL/min) *Enoxaparin/Lovenox 30 mg SQ BID (WT < 150 kg, CrCl > 30 mL/min) AND *Sequential Compression Device (SCD) Assessment and Plan - Diagnosis (1) Acute blood loss anemia Code(s): D62 - Acute posthemorrhagic anemia Status: Acute (2) Dysfunctional uterine bleeding Code(s): N93.8 - Other specified abnormal uterine and vaginal bleeding Status : Acute Plan: 57 year female perimenopausal presents with abnormal uterine bleeding to severe anemia. 1. severe anemia -hemoglobin 3.6; improved to 10.1 after 4 units of RBC; continue to transfuse to above 7 2. Abnormal uterine bleeding -exam benign and imaging no cause for bleeding; No current bleeding -Provera 10mg TID every day if bleeding begins; otherwise Provera 10mg daily until can see CHIEF PROJECTIONIST physician outpatient Thank you for letting us be involved in patient's care. We will sign off on patient at this time.
--- NOTE | 2018-04-13 10:35 | P.PN ---
Subjective Interval history: F/u symptomatic anemia and DUB. Feels good no sxs. OOB already. No bleeding overnight only very minimal bleeding when she urinated(drops) Physical Exam Vital signs: Vital Signs 04/12/18 10:54 04/12/18 10:58 04/12/18 11:32 Temperature 98.3 F 98.3 F Pulse Rate 106 H 106 H Respiratory Rate 20 18 Blood Pressure 117/56 L 117/56 L Pulse Oximetry 99 100 97 04/12/18 13:17 04/12/18 13:33 04/12/18 14:45 Temperature 98.6 F Pulse Rate 110 H 109 H 108 H Respiratory Rate 16 18 18 Blood Pressure 96/53 L 103/55 L 95/50 L Pulse Oximetry 100 100 100 04/12/18 14:47 04/12/18 15:00 04/12/18 16:15 Temperature 101.5 F H Pulse Rate 108 H 102 H 105 H Respiratory Rate 18 18 21 Blood Pressure 95/50 L 94/55 L 94/52 L Pulse Oximetry 100 100 100 04/12/18 16:45 04/12/18 16:53 04/12/18 17:00 Temperature 99.7 F H 99.3 F 100.7 F H Pulse Rate 106 H 101 H Respiratory Rate 22 16 Blood Pressure 94/52 L 89/51 L Pulse Oximetry 100 100 04/12/18 17:11 04/12/18 17:54 04/12/18 18:00 Temperature 99.8 F H Pulse Rate 97 H 97 H 99 H Respiratory Rate 12 22 Blood Pressure 97/44 L Pulse Oximetry 100 100 100 04/12/18 18:01 04/12/18 19:00 04/12/18 19:03 Temperature Pulse Rate 100 H 92 H 92 H Respiratory Rate 24 Blood Pressure 97/44 L 79/48 L 92/52 L Pulse Oximetry 100 100 100 04/12/18 19:40 04/12/18 20:00 04/12/18 22:58 Temperature 99 F 99.1 F 98.4 F Pulse Rate 91 H 93 H 83 Respiratory Rate 39 H 19 14 Blood Pressure 92/52 L 102/50 L 87/51 L Pulse Oximetry 100 100 100 04/12/18 23:15 04/13/18 00:00 04/13/18 03:22 Temperature 98.6 F 98.7 F 98.4 F Pulse Rate 81 81 79 Respiratory Rate 14 19 20 Blood Pressure 87/51 L 93/53 L 102/59 L Pulse Oximetry 100 100 100 04/13/18 04:00 04/13/18 08:00 Temperature Pulse Rate 78 Respiratory Rate 18 Blood Pressure 106/58 L Pulse Oximetry 100 100 Intake & Output 04/12/18 04/13/18 04/13/18 18:59 06:59 18:59 Intake Total 650 / 650 1100 / 1100 Balance 650 / 650 1100 / 1100 Weight 52.163 kg Intake: IV 1100 / 1100 NS Inj 1,000 ML @ 75 mls/hr IV. 1000 / 1000 SIG .[id number] CRYSTAL Rx#:[id number] NS Inj 250 ML @ 15 mls/hr IV. 100 / 100 SIG ONCE CRYSTAL Rx#:[id number] Other 250 / 250 Rbc As-3 Leukoreduced Unit 250 / 250 [id number] Intake (Blood Product) Amt 400 / 400 0 / 0 Rbc As-3 Leukoreduced Unit 400 / 400 [id number] Rbc As-3 Leukoreduced Unit 0 / 0 [id number] Rbc As-3 Leukoreduced Unit 0 / 0 [id number] Rbc As-3 Leukoreduced Unit 0 / 0 0 / 0 [id number] Narrative: GENERAL: This is a well-nourished, well-developed patient, in no apparent distress. CARDIOVASCULAR: RRR without murmurs, gallops, or rubs. RESPIRATORY: Good respiratory efforts. Breath sounds equal and clear to auscultation bilaterally. GASTROINTESTINAL: Abdomen soft, non-tender, non-distended. Normal active bowel sounds MUSCULOSKELETAL: Extremities without cyanosis, or edema. NEURO: Alert & Oriented x4 to person, place, time, situation. Moves all ext x4 PSYCH: Appropriate mood and affect. Results - Labs CBC & Chem 7: 04/13/18 05:25 04/13/18 05:25 Laboratory Results - last 24 hr 04/12/18 04/12/18 04/12/18 11:34 11:34 11:34 WBC 12.1 H RBC 1.04 L Hgb 3.6 L* Hct 10.5 L* MCV 100.6 H MCH 34.2 H MCHC 34.0 RDW 16.6 Plt Count 196 MPV 10.0 Prelim Diff (Auto) Interlocking Tower Operator Neut % (Auto) 83.2 H Lymph % (Auto) 5.5 L [place] % (Auto) 11.1 H Eos % (Auto) 0.0 Baso % (Auto) 0.2 Neut # (Auto) 10.0 H Lymph # (Auto) 0.7 L [place] # (Auto) 1.3 H Eos # (Auto) 0.0 Baso # (Auto) 0.0 WBC Differential . Seg Neuts % (Manual) Lymphocytes % (Manual) Monocytes % (Manual) Basophils % (Manual) Myelocytes % (Man) Promyelocytes % (Man) Abs Neuts (Manual) Differential Comment Auto diff final Platelet Estimate Platelet Morphology Dimorphic RBCs PT INR APTT Sodium 133 L Potassium 4.1 Chloride 101 Carbon Dioxide 17.2 L Anion Gap 15 BUN 15 Creatinine 1.02 H Estimated GFR 56 L Random Glucose 112 H Calcium 6.9 L* Prot Corrected Calcium 8.5 Total Protein 4.2 L Blood Type A Positive Blood Type Recheck Required Antibody Screen Negative MTS Gel Crossmatch 04/12/18 04/13/18 04/13/18 12:49 02:38 05:25 WBC RBC Hgb 10.4 L D Hct 29.5 L MCV MCH MCHC RDW Plt Count MPV Prelim Diff (Auto) Neut % (Auto) Lymph % (Auto) Gulf % (Auto) Eos % (Auto) Baso % (Auto) Neut # (Auto) Lymph # (Auto) Gulf # (Auto) Eos # (Auto) Baso # (Auto) WBC Differential Seg Neuts % (Manual) Lymphocytes % (Manual) Monocytes % (Manual) Basophils % (Manual) Myelocytes % (Man) Promyelocytes % (Man) Abs Neuts (Manual) Differential Comment Platelet Estimate Platelet Morphology Dimorphic RBCs PT 13.9 H INR 1.4 APTT 25.2 Sodium Potassium Chloride Carbon Dioxide Anion Gap BUN Creatinine Estimated GFR Random Glucose Calcium Prot Corrected Calcium Total Protein Blood Type Blood Type Recheck Antibody Screen MTS Gel Crossmatch See Detail 04/13/18 04/13/18 05:25 05:25 WBC 8.4 RBC 3.29 L Hgb 10.1 L Hct 28.0 L MCV 85.2 D MCH 30.8 MCHC 36.1 H RDW 15.2 Plt Count 155 MPV 7.9 Prelim Diff (Auto) Slide review pending Neut % (Auto) 74.0 H Lymph % (Auto) 13.1 Gulf % (Auto) 12.5 H Eos % (Auto) 0.1 Baso % (Auto) 0.3 Neut # (Auto) 6.2 Lymph # (Auto) 1.1 Gulf # (Auto) 1.1 H Eos # (Auto) 0.0 Baso # (Auto) 0.0 WBC Differential Manual diff final Seg Neuts % (Manual) 74 H Lymphocytes % (Manual) 9 Monocytes % (Manual) 13 H Basophils % (Manual) 1 Myelocytes % (Man) 1 H Promyelocytes % (Man) 2 H Abs Neuts (Manual) 6.5 Differential Comment . Platelet Estimate Normal Platelet Morphology Normal Dimorphic RBCs Present H PT INR APTT Sodium 140 Potassium 3.5 Chloride 107 Carbon Dioxide 26.0 Anion Gap 7 BUN 14 Creatinine 0.60 Estimated GFR Greater than 89 Random Glucose 101 Calcium 6.9 L* Prot Corrected Calcium 8.2 L Total Protein 4.6 L Blood Type Blood Type Recheck Antibody Screen MTS Gel Crossmatch - Imaging Impressions Head CT 04/12/18 11:43 CONCLUSION: 1. No acute intracranial abnormalities seen. 2. Minimal sinus disease. . Pelvis Ultrasound 04/12/18 12:56 CONCLUSION: 1. Heterogeneous uterus with some microcalcifications in the myometrium. 2. Small left ovarian cyst measuring 1.2 cm. - Procedures none Assessment and Plan - Assessment (1) Acute blood loss anemia Code(s): D62 - Acute posthemorrhagic anemia Status: Acute (2) Dysfunctional uterine bleeding Code(s): N93.8 - Other specified abnormal uterine and vaginal bleeding Status : Acute - Plan 57-year-old female who presented with severe, life-threatening symptomatic anemia with a hemoglobin of 3.6 due to dysfunctional uterine bleeding. Acute blood loss anemia due to uterine bleeding: Symptomatic. - Resolved with blood transfusion. Improved Hb 10 start fe Dysfunctional uterine bleeding: Noted pelvic ultrasound - Per Radiology Receptionist ct Provera 10 mg TID decrease to QD if bleeding resolves - Support with blood transfusions as above. Discharge Planning: Discharge patient to home Condition on discharge: Improved Regular Diet as tolerated Ad Isha activity No driving Rx written: Fe and provera Follow-up with primary care physician
[2018-04-13] MEDS ORDERED: Ferrous Sulfate 325 MG Tablet PO SCH (11:00)
== END 2018-04-13 12:50 | disposition home or self-care (01) ==
LOC: NEPE 10:30 → NEDA 14:54 → HIMC 16:00
PROVIDERS: ADMIT Internal Medicine; ATTEND Internal Medicine